=== PATIENT | female | born 1990 | race Two or more races ===

== ENCOUNTER 2020-12-30 13:05 | Emergency (ER) | payer OTHER ==
[~2020-12-30] VITALS: Ht 157.5 cm; Wt 43.5 kg
[2020-12-30] MEDS ORDERED: PEPCID AC20 MG PO (19:33)
[2020-12-30] MEDS ORDERED: ZOFRAN8 MG PO (19:33)
== END 2020-12-30 19:48 | disposition home or self-care (01) ==
LOC: ER 13:05
DX: K52.89 Other specified noninfective gastroenteritis and colitis (principal)